=== PATIENT | female | born 1990 | race Caucasian/White ===

== ENCOUNTER 2020-12-12 22:55 | Observation (INO) | payer OTHER, SELFPAY ==
--- NOTE | 2020-12-12 22:58 | ED_ITS ---
HPI - General Adult General Chief complaint: Allergic Reaction Stated complaint: brought by Dr Doss Time Seen by Provider: 12/12/20 22:58 Source: patient, family (Mother) and other (Dr. Doss) Mode of arrival: Ambulatory Limitations: no limitations History of Present Illness HPI narrative: This is a 30-year-old female comes emergency department with complaint of swelling of her tongue and underneath the tongue. Patient had a tongue release the underneath her tongue earlier today. Patient became developing increasing swelling. She is having some difficulty with speech and had some difficulty drinking but was able to drink fluids earlier. She does not feel like her airway is affected she feels like she is moving air properly this time. Patient return to Dr. Doss's office where he removed her sutures as he suspected she may have a hematoma but this did not drain. She did not have significant saliva drainage either. He states this is otherwise quite atypical to have this significant swelling. Patient has not had similar reactions in the past she has allergies to codeine and gluten. She has not had any other rashes or skin changes. No wheezing. Patient denies any fevers. She denies any chills. She denies any redness or warmth. She denies any chest pain or shortness of breath. She has had some mild nausea but no vomiting. She denies any abdominal pain. No dysuria, frequency or urgency. No vaginal bleeding or discharge. Of note she is in that is 18 weeks . She has been getting regular care through the dental services director in [place]. Patient has had 2 prior oral surgeries for removal of cyst in her mouth. She is on prenatals, 2 aspirin 81 mg daily. Related Data Allergies Allergy/AdvReac Type Severity Reaction Status Date / Time codeine Allergy Verified 12/12/20 23:11 gluten Allergy Verified 12/12/20 23:11 Review of Systems Review of Systems ROS Unobtainable: All systems reviewed & are unremarkable except as noted in HPI and below Patient History Medical History (Updated 12/13/20 @ 02:31 by Sindy Davidson MD) 18 weeks gestation of Gluten intolerance Family History (Updated 12/13/20 @ 02:32 by Sindy Davidson MD) Mother Diabetes mellitus Hypertension Breast cancer Social History household members: none Smoking Status: Never smoker alcohol intake: never Exam Narrative Exam Narrative: GEN: well nourished, well appearing female, alert and oriented x 3, patient appears to be in mild distress. HEENT: Atraumatic, pupils are equal round reactive to light, extraocular movements are intact, nares are clear. Patient's tongue appears mild to moderately swollen. She also has swelling underneath the tongue of the lower floor appears to be pushing the tongue upwards. I can see the posterior throat but cannot see the tonsils easily. Patient is slightly muffled. She is swallowing secretions but occasionally spits them out. Patient does not have any stridor. HEART: Regular rate and rhythm without murmur, clicks, rubs. LUNGS:Lungs clear to auscultation, no wheezes, rales, crackles, chest moves symmetrically ABD:bowel sounds normal, soft, non-tender, no guarding, rebound, rigidity, no masses noted, no hepatosplenomegaly, gravid. MSCL: Full range of motion, normal gait NEURO:CN 2-12 intact, sensation normal SKIN: No skin changes noted Initial Vital Signs Initial Vital Signs: Vital Signs Pulse Rate 97 H 12/12/20 23:01 Pulse Oximetry 100 12/12/20 23:01 Course Orders Ordered: ED Orders 12/12/20 23:03 CT soft tissue neck w con Stat 12/12/20 23:14 Complete Blood Count AUTO DIFF Stat Comprehensive Metabolic Panel Stat Lipase Stat Procalcitonin Stat 12/12/20 23:30 COVID19 - ADMIT (W[facility]NEAL[facility] swab/PCR) Stat Acetaminophen (Acetaminophen 325 Mg Tablet) 650 mg PO Q6HR PRN PRN Reason: Fever Dexamethasone (Dexamethasone 4 Mg/Ml Vial) 4 mg IV Q6HR [facility] Last Admin: 12/13/20 05:43 Dose: 4 mg Documented by: FANNY Diphenhydramine HCl (Diphenhydramine 25 Mg Tablet) 25 mg PO Q6HR SHYLA Last Admin: 12/13/20 05:43 Dose: 25 mg Documented by: FANNY Dextrose/Sodium Chloride (Dextrose 5%-0.45% Ns) 1,000 mls @ 100 mls/hr IV CONT [facility] Last Admin: 12/13/20 02:52 Dose: 100 mls/hr Documented by: FANNY Famotidine (Pepcid) 20 mg in 50 mls @ 200 mls/hr IV Q12HR SHYLA Naloxone HCl (Naloxone 0.4 Mg/Ml Vial) 0.2 mg IV Q2MIN PRN PRN Reason: Opiate Reversal Naloxone HCl (Naloxone 0.4 Mg/Ml Vial) 0.2 mg IV Q2MIN PRN PRN Reason: Opiate Reversal Discontinued Medications Epinephrine (Racepinephrine 0.5 Ml Neb) 0.5 ml INH NOW ONE Stop: 12/12/20 23:34 Last Admin: 12/12/20 23:36 Dose: 0.5 ml Documented by: OUMAR Epinephrine HCl (Epinephrine 1 Mg/Ml) 0.5 mg IM NOW ONE Stop: 12/13/20 00:42 Last Admin: 12/13/20 00:50 Dose: 0.5 mg Documented by: OUMAR Dexamethasone 20 mg/ Sodium (Chloride) 52 mls @ 208 mls/hr IV NOW ONE Stop: 12/12/20 23:04 Last Infusion: 12/12/20 23:36 Dose: 0 mls/hr Documented by: Admin: 12/12/20 23:17 Dose: 208 mls/hr Documented by: OUMAR Sodium Chloride (Normal Saline 0.9%) 1,000 mls @ 1,000 mls/hr IV BOLUS ONE Stop: 12/13/20 00:02 Last Infusion: 12/13/20 00:36 Dose: 0 mls/hr Documented by: Admin: 12/12/20 23:18 Dose: 1,000 mls/hr Documented by: OUMAR Ondansetron HCl (Ondansetron 4 Mg/2 Ml Inj) 4 mg IV NOW ONE Stop: 12/12/20 23:04 Last Admin: 12/12/20 23:17 Dose: 4 mg Documented by: OUMAR Reevaluation(s) Reevaluation #1: Spoke with patient. She does not feel it is worsening at this time but is not improving Time: 23:34 Reevaluation #2: Dr. Espinosa, as patient is not a viable at this time she does not feel would be appropriate put on the OB service but they are happy to consult or assist with any questions in terms of medications for treatment. Time: 23:43 Reevaluation #3: Recheck, patient is feeling better. She feels like her tongue size has been decreasing she still has a little bit muffled but her voice is improved audibly to myself as well as herself. Pm repeat check at 1235 patient states stablized but no worsening. Time: 00:11 Consultations Consultation #1: Dr. Davidson. Would like to know that we have here way back up. Also to consult with obstetrics. Time: 23:34 Consultation #2: Dr. Barragan from anesthesia is notified that patient is here and we are monitoring. Consultation #3: Dr. Davidson accepts for observation in the ICU. Patient has had some improvement but not resolved. We did give Epi to see if this would improve and also seems to have some improvement on recheck prior to going to floor. Time: 00:39 Vital Signs Vital signs: Vital Signs - 8 hr 12/12/20 23:30 12/12/20 23:41 12/12/20 23:47 Pulse Rate 87 71 110 H Respiratory Rate 20 Blood Pressure 134/58 L Pulse Oximetry 98 98 100 12/13/20 00:00 12/13/20 00:21 12/13/20 00:30 Pulse Rate 92 H 88 88 Respiratory Rate Blood Pressure 126/62 Pulse Oximetry 97 97 97 Medical Decision Making Lab Data Lab results reviewed: Yes I reviewed the patient's lab results. Result diagrams: 12/12/20 23:14 12/12/20 23:14 Labs: Lab Results 12/12/20 12/12/20 12/12/20 Range/Units 23:14 23:14 23:14 WBC 17.2 H (4.5-11.0) X10^3/uL RBC 3.98 L (4.0-5.2) X10^6/uL Hgb 12.1 (12.0-16.0) g/dL Hct 35.1 L (36-46) % MCV 88.3 (80-100) fL MCH 30.4 (26-34) PG MCHC 34.4 (30-36) % RDW 13.7 (11.6-14.8) % Plt Count 216 (150-400) X10^3/uL Neut % (Auto) 85.8 H (50-75) % Lymph % (Auto) 9.4 L (25-40) % [place] % (Auto) 4.2 (3-14) % Eos % (Auto) 0.3 L (2-4) % Baso % (Auto) 0.3 (0-2) % Neut # (Auto) 12484 H (3295-9140) /uL Lymph # (Auto) 1600 (4684-8270) /uL [place] # (Auto) 700 (0-900) /uL Eos # (Auto) 0 (0-450) /uL Baso # (Auto) 100 (0-100) /uL Sodium 135 L (137-145) mmol/L Potassium 3.8 (3.4-5.1) mmol/L Chloride 105 (98-107) mmol/L Carbon Dioxide 21 L (22-32) mmol/L BUN 6 L (7-17) mg/dL Creatinine 0.40 L (0.52-1.04) mg/dL Estimated GFR > 60.0 (>60) mL/min BUN/Creatinine Ratio 15.0 (6-22) Glucose 123 H (70-100) mg/dL Calcium 9.6 (8.4-10.2) mg/dL Total Bilirubin 0.5 (0.2-1.3) mg/dL AST 24 (14-36) IU/L ALT 18 (<35) IU/L Alkaline Phosphatase 48 (38-126) U/L Total Protein 6.9 (6.3-8.2) g/dL Albumin 4.0 (3.5-5.0) g/dL Globulin 2.9 (1.7-4.1) g/dL Albumin/Globulin Ratio 1.4 (1.0-2.8) Lipase 74 (23-300) U/L Procalcitonin 0.05 (<0.5) ng/mL SARS-CoV-2 (PCR) (Negative) 12/12/20 Range/Units 23:30 WBC (4.5-11.0) X10^3/uL RBC (4.0-5.2) X10^6/uL Hgb (12.0-16.0) g/dL Hct (36-46) % MCV (80-100) fL MCH (26-34) PG MCHC (30-36) % RDW (11.6-14.8) % Plt Count (150-400) X10^3/uL Neut % (Auto) (50-75) % Lymph % (Auto) (25-40) % [place] % (Auto) (3-14) % Eos % (Auto) (2-4) % Baso % (Auto) (0-2) % Neut # (Auto) (4161-4279) /uL Lymph # (Auto) (1848-4860) /uL [place] # (Auto) (0-900) /uL Eos # (Auto) (0-450) /uL Baso # (Auto) (0-100) /uL Sodium (137-145) mmol/L Potassium (3.4-5.1) mmol/L Chloride (98-107) mmol/L Carbon Dioxide (22-32) mmol/L BUN (7-17) mg/dL Creatinine (0.52-1.04) mg/dL Estimated GFR (>60) mL/min BUN/Creatinine Ratio (6-22) Glucose (70-100) mg/dL Calcium (8.4-10.2) mg/dL Total Bilirubin (0.2-1.3) mg/dL AST (14-36) IU/L ALT (<35) IU/L Alkaline Phosphatase (38-126) U/L Total Protein (6.3-8.2) g/dL Albumin (3.5-5.0) g/dL Globulin (1.7-4.1) g/dL Albumin/Globulin Ratio (1.0-2.8) Lipase (23-300) U/L Procalcitonin (<0.5) ng/mL SARS-CoV-2 (PCR) Negative (Negative) Imaging Data CT soft tissue neck: Radiologist's Impression: Nonspecific sublingual and submandibular edema and stranding left greater than right. Findings are slightly more prominent to the left of midline. No focal abscess or fluid collection noted. There is only minimal bilateral adenopathy. Findings are nonspecific. Submandibular glands are homogeneous and symmetric in size. Bilateral parotid glands are also much is symmetric in size. No salivary ductal stones demonstrated. Epiglottis, tonsils and adenoids are unremarkable. Nonspecific 1.4 cm left thyroid nodule suggest follow-up ultrasound. MDM Narrative Medical decision making narrative: This is a 30-year-old female at 18 weeks with care in [place]. Patient was accompanied by Dr. Doss after having a tongue release earlier today. Patient had some mild discomfort, took Tylenol and use some topical lidocaine to the site and had increasing swelling over several hours with significant swelling underneath the tongue and sublingual tissue. Patient was re-evaluated by Dr. Doss in the office to release the sutures in regards to being concerned there may be a hematoma. This did not improve patient's symptoms and there was no significant drainage of hematoma or saliva. He continued to monitor but she did not have much improvement you accompanied the patient here to the emergency department for evaluation after contacting myself. Patient is having some difficulty with secretions, her voice is muffled but she is able to speak, she does not have any stridor but does have significant swelling underneath the tongue and somewhat of the tongue itself. Patient did respond to Decadron, racemic epi here in the department and epinephrine was also added is this unclear if it is a true anaphylaxis, angioedema or reactive swelling secondary to her intervention. Area does not appear to be infected, patient does have a leukocytosis but this could be likely reactive as well as elevated during . Patient's CT does not show any obvious fluid collection or hematoma. I spoke with order processing clerk who does not recommend any intervention from their standpoint. We did discuss if TXA would possibly be an option if needed as off-label use for angioedema they felt this would likely be appropriate if needed. They are happy to consult for any additional recommendations in terms of medications or care. I also spoke with Anesthesia mother aware that there is a patient with potential critical airway. Patient was monitored here in the department she continued to have some improvement her speech also began to improve and she was able to tolerate her secretions better. Patient was then transferred up to the ICU for continuing monitoring overnight. Discharge Plan Departure Patient Disposition: Admitted as Observation Clinical Impression: Angioedema Qualifiers: Encounter type: initial encounter Qualified Code(s): T78.3XXA - Angioneurotic edema, initial encounter Admit Date/Time: 12/13/20 00:38 Admit Provider: Sindy Davidson
[2020-12-12 23:01] VITALS: PULSE 97; O2SAT 100
--- NOTE | 2020-12-12 23:03 | DI.CT.S_ITS ---
PROCEDURE: CT SOFT TISSUE NECK W CON INDICATIONS: status post tongue release, swelling TECHNIQUE: After the administration of intravenous contrast, 3.0 mm axial sections acquired from the sella to the aortic arch. Additional oblique axial 3.0 mm sections acquired through the pharynx. 3 mm thick coronal and sagittal reformats were generated. For radiation dose reduction, the following was used: automated exposure control. COMPARISON: None. FINDINGS: Image quality: Excellent. Lymph nodes: No enlarged lymph nodes seen throughout the neck. Vessels: Visualized vasculature appears patent. Neck spaces: The oropharynx, nasopharynx, and pharynx demonstrate no mucosal lesions. The vocal cords, false vocal cords, pyriform sinuses, epiglottis, vallecula, and tongue base all appear normal. Small air locules noted inferior to the anterior margin of the tongue likely at the site of tongue release. Fluid fills the vallecular lie in the left piriform sinus. There is sublingual and submandibular soft tissue edema/stranding which could be related to recent surgery or infection. No abscess identified. Glands: The parotid and submandibular glands appear normal. Thyroid gland contains a 1.5 x 1.5 x 2.0 centimeter nodule in the left lobe. Miscellaneous: Visualized brain and orbits appear normal. Lung apices appear clear. Superficial soft tissues appear normal. Bones: No suspicious bony lesions. Visualized sinuses and mastoids appear unremarkable. IMPRESSION: 1. Mild sublingual and sub mandibular soft tissue inflammation as well as small air locules in the anterior sublingual space which could be postsurgical or infectious. 2. No abscess. 3. 1.5 x 1.5 x 2.0 centimeter left thyroid nodule. Recommend thyroid ultrasound when clinically feasible. Dictated by: Dilcia Rosas MD, PhD on 12/13/2020 at 7:16 Approved by: Dilcia Rosas MD, PhD on 12/13/2020 at 7:23
[2020-12-12 23:06] VITALS: BP 129/83; PULSE 85; RESP 18; TEMP 36.7; O2SAT 98; BMI 36.0
[2020-12-12 23:08] VITALS: BP 140/82; PULSE 90; O2SAT 99
[2020-12-12] MEDS: dexAMETHasone 20 MG in SODIUM CHLORIDE 0.9% 50 ML 208 ML IV (23:17)
[2020-12-12] MEDS: ONDANSETRON 4 MG/2 ML INJ IV (23:17)
[2020-12-12] MEDS: SODIUM CHLORIDE 0.9% 1,000 ML 1000 ML IV (23:18)
[2020-12-12 23:24] LABS: Add Manual Diff / Slide Review NO; Basophils Absolute Auto 100 /uL (0-100); Basophils Percent Auto 0.3 % (0-2); Eosinophils Absolute Auto 0 /uL (0-450); Eosinophils Percent Auto 0.3 % (2-4); Hematocrit 35.1 % (36-46); Hemoglobin 12.1 g/dL (12.0-16.0); Lymphocytes Absolute Auto 1600 /uL (1100-4500); Lymphocytes Percent Auto 9.4 % (25-40); Mean Corpuscular HGB Conc 34.4 % (30-36); Mean Corpuscular Hemoglobin 30.4 PG (26-34); Mean Corpuscular Volume 88.3 fL (80-100); Monocytes Absolute Auto 700 /uL (0-900); Monocytes Percent Auto 4.2 % (3-14); Neutrophils Absolute Auto 14700 /uL (1500-7000); Neutrophils Percent Auto 85.8 % (50-75); Platelet Count 216 X10^3/uL (150-400); Red Blood Cell Count 3.98 X10^6/uL (4.0-5.2); Red Cell Distribution Width 13.7 % (11.6-14.8); White Blood Cell Count 17.2 X10^3/uL (4.5-11.0)
[2020-12-12 23:30] VITALS: PULSE 87; O2SAT 98
[2020-12-12 23:30] LABS: Alanine Aminotransferase 18 IU/L (<35); Albumin Globulin Ratio 1.4 (1.0-2.8); Alkaline Phosphatase 48 U/L (38-126); Aspartate Aminotransferase 24 IU/L (14-36); Bilirubin Total 0.5 mg/dL (0.2-1.3); Blood Urea Nitrogen 6 mg/dL (7-17); Calcium 9.6 mg/dL (8.4-10.2); Carbon Dioxide 21 mmol/L (22-32); Chloride 105 mmol/L (98-107); Estimated Glomerular Filt Rate > 60.0 mL/min (>60); Globulin 2.9 g/dL (1.7-4.1); Glucose 123 mg/dL (70-100); HEMOLYSIS < 15 (0-50); Lipase 74 U/L (23-300); Potassium 3.8 mmol/L (3.4-5.1); Sodium 135 mmol/L (137-145); Total Protein 6.9 g/dL (6.3-8.2)
[2020-12-12] MEDS: RACEPINEPHRINE 0.5 ML NEB INH (23:36)
[2020-12-12 23:41] VITALS: PULSE 71; RESP 20; O2SAT 98
[2020-12-12 23:47] VITALS: BP 134/58; PULSE 110; O2SAT 100
[2020-12-13] VITALS (12 sets, daily range): BP systolic 117–149; BP diastolic 58–74; PULSE 88–110; RESP 18–24; TEMP 36.1–37.2; O2SAT 94–98; BMI 36.0
[2020-12-13 00:10] LABS: Procalcitonin 0.05 ng/mL (<0.5)
--- NOTE | 2020-12-13 00:34 | PC.NURSE ---
Her tongue swelling is improved as noted by DR Doss and DR Yarbrough,also her voice is clearer now,she is swallowing her secretions and she vebalized less tongue and facial swelling.
[2020-12-13 00:37] LABS: COVID19 - ADMIT (NP swab/PCR) Negative (Negative)
[2020-12-13] MEDS: EPINEPHrine 1 MG/ML 0.5 MG IM (00:50)
--- NOTE | 2020-12-13 02:27 | PM.HP.1 ---
History of Present Illness History of Present Illness Date Patient Seen: 12/13/20 Chief complaint: brought by Dr Doss Narrative: The patient is a 30-year-old 1 para 0 who is 18 weeks gestation who underwent a tongue release surgery earlier today. Patient states the surgery was uneventful. She went home and several hours later developed significant pain. She took Tylenol and lidocaine but developed increasing swelling of her tongue as well as additional pain. She was seen by Dr. Doss, he removed the sutures thinking the patient may have had a hematoma. However there was no evidence of hematoma. As the patient had significant swelling she had difficulty speaking, she was drooling, and there was concern about airway compromise. Patient did undergo CT scanning which revealed:Nonspecific sublingual and submandibular edema and stranding left greater than right. Findings are slightly more prominent to the left of midline. No focal abscess or fluid collection noted. There is only minimal bilateral adenopathy. Findings are nonspecific. Submandibular glands are homogeneous and symmetric in size. Bilateral parotid glands are also much is symmetric in size. No salivary ductal stones demonstrated. Epiglottis, tonsils and adenoids are unremarkable. Nonspecific 1.4 cm left thyroid nodule suggest follow-up ultrasound. Patient denies any shortness of breath, wheezing, or difficulty swallowing. She was given Decadron, racemic epinephrine in the emergency department with some improvement of her symptoms. Swelling appear to improved. Her speech improved. However given her significant edema the patient is admitted to the hospital overnight for observation. She reports her pain is currently well controlled. She continues to have excessive saliva which she is expelling. She does have a history of allergies to codeine and gluten. Patient History Medical History (Updated 12/13/20 @ 02:31 by Sindy Davidson MD) 18 weeks gestation of Gluten intolerance Family & Social History Family History (Updated 12/13/20 @ 02:32 by Sindy Davidson MD) Mother Diabetes mellitus Hypertension Breast cancer Social History: household members none Prior Living Arrangements Apartment/Condo Safety & Behavioral: Feels Safe in Current Yes Environment Been Physically Hurt or No Threatened By a Person Suicidal Ideation Description None Suicide Plan Description No Plan Tobacco & Substance use: Smoking Status Never smoker alcohol intake never Substance Use Type does not use Meds Home Medications and Allergies Allergies Allergy/AdvReac Type Severity Reaction Status Date / Time codeine Allergy Verified 12/12/20 23:11 gluten Allergy Verified 12/12/20 23:11 Review of Systems Review of Systems ROS: Yes All systems reviewed with the patient and are negative except as otherwise documented Exam Vital Signs (past 8 hours): - 12/12/20 23:01 12/12/20 23:06 12/12/20 23:08 Temperature 98.1 F Pulse Rate 97 H 85 90 Respiratory Rate 18 Blood Pressure 129/83 140/82 Pulse Oximetry 100 98 99 12/12/20 23:30 12/12/20 23:41 12/12/20 23:47 Temperature Pulse Rate 87 71 110 H Respiratory Rate 20 Blood Pressure 134/58 L Pulse Oximetry 98 98 100 12/13/20 00:00 12/13/20 00:21 12/13/20 00:30 Temperature Pulse Rate 92 H 88 88 Respiratory Rate Blood Pressure 126/62 Pulse Oximetry 97 97 97 12/13/20 00:57 12/13/20 00:59 12/13/20 01:15 Temperature 99.0 F Pulse Rate 107 H 100 H 110 H Respiratory Rate 18 18 Blood Pressure 133/61 133/61 149/72 H Pulse Oximetry 97 98 97 12/13/20 01:40 Temperature 99.0 F Pulse Rate 110 H Respiratory Rate 18 Blood Pressure 149/72 H Pulse Oximetry 97 Oxygen Delivery Method Room Air Oxygen Flow Rate 0 Narrative Exam Narrative: Pleasant female lying in bed with difficulty in speaking, her tongue is enlarged HEENT: Normocephalic atraumatic, extraocular muscles are intact, oropharynx reveals an enlarged tongue, underneath the tongue is some erythema and prior surgical scarring. Neck: Supple, mildly tender in the left anterior cervical area, no palpable masses noted Lungs: Clear to auscultation Cardiac exam: Regular rate and rhythm normal S1-S2 Abdomen fundus is palpated, no hepatosplenomegaly noted Extremities: No edema Neuro exam: Nonfocal Skin exam: No lesion Psychiatric exam: Patient is awake alert and answers questions appropriately, no delusions, no hallucinations Objective Labs Result Diagrams: 12/12/20 23:14 12/12/20 23:14 Labs: Laboratory Results - last 24 hr 12/12/20 12/12/20 12/12/20 23:14 23:14 23:14 WBC 17.2 H RBC 3.98 L Hgb 12.1 Hct 35.1 L MCV 88.3 MCH 30.4 MCHC 34.4 RDW 13.7 Plt Count 216 Neut % (Auto) 85.8 H Lymph % (Auto) 9.4 L [place] % (Auto) 4.2 Eos % (Auto) 0.3 L Baso % (Auto) 0.3 Neut # (Auto) 33792 H Lymph # (Auto) 1600 [place] # (Auto) 700 Eos # (Auto) 0 Baso # (Auto) 100 Sodium 135 L Potassium 3.8 Chloride 105 Carbon Dioxide 21 L BUN 6 L Creatinine 0.40 L Estimated GFR > 60.0 BUN/Creatinine Ratio 15.0 Glucose 123 H Calcium 9.6 Total Bilirubin 0.5 AST 24 ALT 18 Alkaline Phosphatase 48 Total Protein 6.9 Albumin 4.0 Globulin 2.9 Albumin/Globulin Ratio 1.4 Lipase 74 Procalcitonin 0.05 SARS-CoV-2 (PCR) 12/12/20 23:30 WBC RBC Hgb Hct MCV MCH MCHC RDW Plt Count Neut % (Auto) Lymph % (Auto) [place] % (Auto) Eos % (Auto) Baso % (Auto) Neut # (Auto) Lymph # (Auto) [place] # (Auto) Eos # (Auto) Baso # (Auto) Sodium Potassium Chloride Carbon Dioxide BUN Creatinine Estimated GFR BUN/Creatinine Ratio Glucose Calcium Total Bilirubin AST ALT Alkaline Phosphatase Total Protein Albumin Globulin Albumin/Globulin Ratio Lipase Procalcitonin SARS-CoV-2 (PCR) Negative Assessment & Plan Assessment & Plan narrative: Impression 1. 30-year-old female 18 weeks gestation admitted to the hospital for probable angioedema status post tongue release surgery -patient continues to have significant swelling, difficulty with speech, and drooling -she has an elevated white count at 17,000 which is likely reactive related to her surgery earlier today -her pain appears to be well controlled, swelling has improved, no evidence of airway compromise -CT scan of the neck and soft tissues revealNonspecific sublingual and submandibular edema and stranding left greater than right. Findings are slightly more prominent to the left of midline. No focal abscess or fluid collection noted. There is only minimal bilateral adenopathy. Findings are nonspecific. Submandibular glands are homogeneous and symmetric in size. Bilateral parotid glands are also much is symmetric in size. No salivary ductal stones demonstrated. Epiglottis, tonsils and adenoids are unremarkable. Nonspecific 1.4 cm left thyroid nodule suggest follow-up ultrasound. -at this time will continue Decadron 4 mg q.6, Benadryl 50 mg q.6, Pepcid 20 mg twice daily -will continue Tylenol for pain -will utilize SCDs for DVT prophylaxis -anticipate the patient will be able to discharge and several hours once her swelling has improved 2. Eighteen weeks gestation -as the is not viable at this time no further intervention is needed, will consult Ob if the patient remains here beyond the next 24 hours Patient is a full code will note that her record accordingly Patient states her mother is her surrogate decision maker and that will be noted in her record Patient is admitted under observation as it is anticipated she will discharge within 8 hours
[2020-12-13] MEDS: DEXTROSE 5%-0.45% NS 1,000 ML 100 ML IV (02:52)
[2020-12-13] MEDS: diphenhydrAMINE 25 MG TABLET PO ×2 (05:43→12:31)
[2020-12-13] MEDS: DEXAMETHASONE 4 MG/ML VIAL IV ×2 (05:43→12:31)
--- NOTE | 2020-12-13 07:09 | P.PN_ITS ---
Subjective Subjective Date Patient Seen: 12/13/20 Time Patient Seen: 07:10 Interval history: Patient reports the pain and discomfort has decreased and she is feeling better. She is able to swallow her secretions and she was able to swallow a pill. She feels the swelling has decreased. Exam Vital Signs (past 8 hours): - 12/12/20 23:30 12/12/20 23:41 12/12/20 23:47 Temperature Pulse Rate 87 71 110 H Respiratory Rate 20 Blood Pressure 134/58 L Pulse Oximetry 98 98 100 12/13/20 00:00 12/13/20 00:21 12/13/20 00:30 Temperature Pulse Rate 92 H 88 88 Respiratory Rate Blood Pressure 126/62 Pulse Oximetry 97 97 97 12/13/20 00:57 12/13/20 00:59 12/13/20 01:15 Temperature 99.0 F Pulse Rate 107 H 100 H 110 H Respiratory Rate 18 18 Blood Pressure 133/61 133/61 149/72 H Pulse Oximetry 97 98 97 12/13/20 01:40 12/13/20 03:23 12/13/20 04:26 Temperature 99.0 F 97.6 F 97.8 F Pulse Rate 110 H 101 H 99 H Respiratory Rate 18 19 19 Blood Pressure 149/72 H 137/60 131/59 L Pulse Oximetry 97 96 97 12/13/20 05:39 12/13/20 06:30 Temperature 97.8 F 97.0 F L Pulse Rate 102 H 88 Respiratory Rate 23 18 Blood Pressure 130/58 L 138/74 Pulse Oximetry 95 94 Oxygen Delivery Method Room Air Oxygen Flow Rate 0 Narrative Exam Narrative: Able to swallow her secretions and she is not having any difficulty with breathing. Const General: cooperative and comfortable Orientation: alert and oriented x3 HENMT Mouth: oral mucosae normal and muffled voice Other: Floor of the mouth still firm and slightly raised. Edema in the tongue has decreased. Wound with some opening near the submandibular ducts. No active bleeding noted. Neck Neck: trachea midline and submandibular swelling Other: Tender to palpation in the submandibular glands. Objective Labs Result Diagrams: 12/12/20 23:14 12/12/20 23:14 Labs: Laboratory Results - last 24 hr 12/12/20 12/12/20 12/12/20 23:14 23:14 23:14 WBC 17.2 H RBC 3.98 L Hgb 12.1 Hct 35.1 L MCV 88.3 MCH 30.4 MCHC 34.4 RDW 13.7 Plt Count 216 Neut % (Auto) 85.8 H Lymph % (Auto) 9.4 L [place] % (Auto) 4.2 Eos % (Auto) 0.3 L Baso % (Auto) 0.3 Neut # (Auto) 41657 H Lymph # (Auto) 1600 [place] # (Auto) 700 Eos # (Auto) 0 Baso # (Auto) 100 Sodium 135 L Potassium 3.8 Chloride 105 Carbon Dioxide 21 L BUN 6 L Creatinine 0.40 L Estimated GFR > 60.0 BUN/Creatinine Ratio 15.0 Glucose 123 H Calcium 9.6 Total Bilirubin 0.5 AST 24 ALT 18 Alkaline Phosphatase 48 Total Protein 6.9 Albumin 4.0 Globulin 2.9 Albumin/Globulin Ratio 1.4 Lipase 74 Procalcitonin 0.05 SARS-CoV-2 (PCR) 12/12/20 23:30 WBC RBC Hgb Hct MCV MCH MCHC RDW Plt Count Neut % (Auto) Lymph % (Auto) [place] % (Auto) Eos % (Auto) Baso % (Auto) Neut # (Auto) Lymph # (Auto) [place] # (Auto) Eos # (Auto) Baso # (Auto) Sodium Potassium Chloride Carbon Dioxide BUN Creatinine Estimated GFR BUN/Creatinine Ratio Glucose Calcium Total Bilirubin AST ALT Alkaline Phosphatase Total Protein Albumin Globulin Albumin/Globulin Ratio Lipase Procalcitonin SARS-CoV-2 (PCR) Negative [facility] Medical History (Updated 12/13/20 @ 02:31 by Sindy Davidson MD) 18 weeks gestation of Gluten intolerance Family History (Updated 12/13/20 @ 02:32 by Sindy Davidson MD) Mother Diabetes mellitus Hypertension Breast cancer Social History household members: none Smoking Status: Never smoker alcohol intake: never Assessment & Plan Post-op Postoperative Procedures: Lingual frenuloplasty Postoperative day: 1 Postoperative status narrative: Patient with postoperative swelling that was quite significant and potentially compromising her airway. Unknown etiology, either angioedema or surgical swelling. Postoperative plan narrative: Continue with steroid treatment and monitor patient's airway. Allow advance in diet as tolerated. Time Spent With Patient Time with patient: less than 15 minutes
--- NOTE | 2020-12-13 09:32 | P.CONS_ITS ---
History of Present Illness Consult details Date Patient Seen: 12/13/20 Time Patient Seen: 09:00 Chief complaint: brought by Dr Doss Reason for consult: 18 weeks Requesting provider: Arturo Lawton Narrative: This patient is a 30-year-old at 18 weeks gestation with a achieved via intrauterine insemination, admitted to the hospital after angioedema from an allergic reaction to lidocaine. The patient was undergoing a snip of a tongue tie with ENT, admitted to the hospitalist service for man agement and doing well. The patient has had an otherwise uncomplicated , denies bleeding, cramping, or loss of fluid, pelvic pain, or abdominal pain. The patient has not yet felt consistent movement. She is cared for by a midwifery group in [place]. 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 Meds Home Medications and Allergies Home Medications Medication Instructions Recorded Confirmed Type aspirin 162 mg PO DAILY 12/13/20 12/13/20 History folic acid-vitamin B6-vit B12 1 tab PO QPM 12/13/20 12/13/20 History loratadine [Claritin] 10 mg PO DAILY 12/13/20 12/13/20 History omega-3 fatty acids 1,500 mg PO DAILY 12/13/20 12/13/20 History prednisone See Rx Instructions .ROUTE 12/13/20 Rx .COMPLEX 4 Days #6 tab vit-iron fum-folic ac 1 tab PO QPM 12/13/20 12/13/20 History sertraline 75 mg PO QPM 12/13/20 12/13/20 History Allergies Allergy/AdvReac Type Severity Reaction Status Date / Time codeine Allergy Verified 12/12/20 23:11 gluten Allergy Verified 12/12/20 23:11 Review of Systems Constitutional Constitutional: Reports system reviewed and no additional complaints, except as documented Gastrointestinal Gastrointestinal: Reports system reviewed and no additional complaints, except as documented Genitourinary Genitourinary: Reports system reviewed and no additional complaints, except as documented Exam Vital Signs (past 8 hours): - 12/13/20 01:40 12/13/20 03:23 12/13/20 04:26 Temperature 99.0 F 97.6 F 97.8 F Pulse Rate 110 H 101 H 99 H Respiratory Rate 18 19 19 Blood Pressure 149/72 H 137/60 131/59 L Pulse Oximetry 97 96 97 12/13/20 05:39 12/13/20 06:30 12/13/20 07:30 Temperature 97.8 F 97.0 F L 97.5 F L Pulse Rate 102 H 88 95 H Respiratory Rate 23 18 24 Blood Pressure 130/58 L 138/74 117/65 Pulse Oximetry 95 94 94 Oxygen Delivery Method Room Air Oxygen Flow Rate 0 Const General: cooperative, healthy appearing and comfortable Orientation: alert, awake and oriented x3 GI Palpation: soft and No tender Other: heart tone achieved with Doppler, 157, moderate variability within the 150s. movement audible. No fundal tenderness. Objective Labs Result Diagrams: 12/13/20 08:45 12/13/20 08:45 Labs: Laboratory Results - last 24 hr 12/12/20 12/12/20 12/12/20 23:14 23:14 23:14 WBC 17.2 H RBC 3.98 L Hgb 12.1 Hct 35.1 L MCV 88.3 MCH 30.4 MCHC 34.4 RDW 13.7 Plt Count 216 Neut % (Auto) 85.8 H Lymph % (Auto) 9.4 L [place] % (Auto) 4.2 Eos % (Auto) 0.3 L Baso % (Auto) 0.3 Neut # (Auto) 15166 H Lymph # (Auto) 1600 [place] # (Auto) 700 Eos # (Auto) 0 Baso # (Auto) 100 Sodium 135 L Potassium 3.8 Chloride 105 Carbon Dioxide 21 L BUN 6 L Creatinine 0.40 L Estimated GFR > 60.0 BUN/Creatinine Ratio 15.0 Glucose 123 H Calcium 9.6 Total Bilirubin 0.5 AST 24 ALT 18 Alkaline Phosphatase 48 Total Protein 6.9 Albumin 4.0 Globulin 2.9 Albumin/Globulin Ratio 1.4 Lipase 74 Procalcitonin 0.05 SARS-CoV-2 (PCR) 12/12/20 23:30 WBC RBC Hgb Hct MCV MCH MCHC RDW Plt Count Neut % (Auto) Lymph % (Auto) [place] % (Auto) Eos % (Auto) Baso % (Auto) Neut # (Auto) Lymph # (Auto) [place] # (Auto) Eos # (Auto) Baso # (Auto) Sodium Potassium Chloride Carbon Dioxide BUN Creatinine Estimated GFR BUN/Creatinine Ratio Glucose Calcium Total Bilirubin AST ALT Alkaline Phosphatase Total Protein Albumin Globulin Albumin/Globulin Ratio Lipase Procalcitonin SARS-CoV-2 (PCR) Negative Assessment & Plan Assessment & Plan narrative: This patient has reassuring status, with no obstetrical symptoms and a heart rate as above. We discussed that a short-term steroid taper is safe in when indicated, discussed precautions for return, and discussed that she should call her human resources analyst for discussion of post admission follow-up. All questions pertaining to her obstetric care today were answered.
[2020-12-13 09:37] LABS: Add Manual Diff / Slide Review NO; Basophils Absolute Auto 0 /uL (0-100); Basophils Percent Auto 0.1 % (0-2); Eosinophils Absolute Auto 0 /uL (0-450); Hematocrit 33.3 % (36-46); Hemoglobin 11.4 g/dL (12.0-16.0); Lymphocytes Absolute Auto 900 /uL (1100-4500); Lymphocytes Percent Auto 6.3 % (25-40); Mean Corpuscular HGB Conc 34.1 % (30-36); Mean Corpuscular Hemoglobin 30.2 PG (26-34); Mean Corpuscular Volume 88.6 fL (80-100); Monocytes Absolute Auto 200 /uL (0-900); Monocytes Percent Auto 1.4 % (3-14); Neutrophils Absolute Auto 12400 /uL (1500-7000); Neutrophils Percent Auto 92.2 % (50-75); Platelet Count 218 X10^3/uL (150-400); Red Blood Cell Count 3.77 X10^6/uL (4.0-5.2); Red Cell Distribution Width 13.7 % (11.6-14.8); White Blood Cell Count 13.4 X10^3/uL (4.5-11.0)
[2020-12-13 09:45] LABS: BUN Creatinine Ratio 15.2 (6-22); Blood Urea Nitrogen 5 mg/dL (7-17); Calcium 9.3 mg/dL (8.4-10.2); Carbon Dioxide 19 mmol/L (22-32); Chloride 108 mmol/L (98-107); Estimated Glomerular Filt Rate > 60.0 mL/min (>60); Glucose 155 mg/dL (70-100); HEMOLYSIS < 15 (0-50); Magnesium 1.5 mg/dL (1.6-2.3); Sodium 135 mmol/L (137-145)
--- NOTE | 2020-12-13 11:14 | CM.IDA ---
Initial DCP Assessment Note Pt is a 30 yo female, resident of [place], presents POD#0 from a Lingual frenuloplasty, or tongue release surgery by Dr Cody Doss PCP: Not Listed Payer:Rajeev Met w/patient this morning, introduced role. Patient lives alone, currently 18 weeks . Patient came in to the ED w/her mom and recommended by Dr Doss for increased pain and swelling s/p tongue release surgery 12.12.20. Patient admitted observation to hospitalist service, w/OBGYN consult and Dr Doss's visit for s/p surgical care. According to Dr Lawton, patient will likely DC later today on po steroids. Patient eager to return home, states her mom is supportive and will transport her home upon DC. Patient denies needs from this MAHOGANY Montiel Discharge Planning/Care Management CM Discharge Assessment Start: 12/13/20 11:07 Freq: Status: Active Protocol: Document 12/13/20 11:07 ROSS (Rec: 12/13/20 11:09 [id number]) Discharge Planning Assessment Assigned Straight Line [employer]ter MAHOGANY Mays DPOA/Assigned Designee Name yeyo Rodriguez Contact Information [phone] Advance Directives? No History Provided By Patient Prior Living Arrangements Apartment/Condo Household Members none Type of transporation used prior to Drives own vehicle admit Independent with ADL's Yes Is patient alert and oriented? Yes Barriers to Discharge No Discharge Plan Home Transportation Arrangement Mom to transport home Referrals Initiated None needed
[2020-12-13] MEDS: FAMOTIDINE 20 MG/50 ML PIGGYBACK 200 MG IV (12:31)
--- NOTE | 2020-12-13 12:48 | P.DS_ITS ---
History of Present Illness History of Present Illness Date Patient Seen: 12/13/20 Time Patient Seen: 12:48 Chief complaint: brought by Dr Doss Narrative: Per Dr. Davidson, The patient is a 30-year-old 1 para 0 who is 18 weeks gestation who underwent a tongue release surgery earlier today. Patient states the surgery was uneventful. She went home and several hours later developed significant pain. She took Tylenol and lidocaine but developed increasing swelling of her tongue as well as additional pain. She was seen by Dr. Doss, he removed the sutures thinking the patient may have had a hematoma. However there was no evidence of hematoma. As the patient had significant swelling she had difficulty speaking, she was drooling, and there was concern about airway compromise. Patient did undergo CT scanning which revealed:Nonspecific sublingual and submandibular edema and stranding left greater than right. Findings are slightly more prominent to the left of midline. No focal abscess or fluid collection noted. There is only minimal bilateral adenopathy. Findings are nonspecific. Submandibular glands are homogeneous and symmetric in size. Bilateral parotid glands are also much is symmetric in size. No salivary ductal stones demonstrated. Epiglottis, tonsils and adenoids are unremarkable. Nonspecific 1.4 cm left thyroid nodule suggest follow-up ultrasound. Patient denies any shortness of breath, wheezing, or difficulty swallowing. She was given Decadron, racemic epinephrine in the emergency department with some improvement of her symptoms. Swelling appear to improved. Her speech improved. However given her significant edema the patient is admitted to the hospital overnight for observation. She reports her pain is currently well controlled. She continues to have excessive saliva which she is expelling. She does have a history of allergies to codeine and gluten. Discharge Providers Provider Date of admission: 12/13/20 00:38 Discharge Date: 12/13/20 Discharge provider: Arturo Lawton DO Summary Hospital Course Discharge Diagnosis: 1. angioedema, acute, present on admission, improved. 2. Eighteen weeks gestation 3. S/p recent tongue release surgery Hospital Course: This is a 30-year-old female, currently 18 weeks who presented with tongue swelling after recent tongue release. She was started on steroid therapy with rapid improvement of her tongue swelling. She was able to eat and tolerated diet at the time of discharge. It is unclear the source of h er angioedema at this time, possibilities include the lidocaine spray which was used during her recent procedure or possibly NSAID induced from the baby aspirin which she is taking due to elevated blood pressures during her however this is felt to be less likely. She was seen by OBGYN for a heart check which revealed no problems with her current . She was discharged to [facility] a short steroid taper and to follow-up with her facial surgeon, Dr. Stephenson. Exam Vital Signs (past 8 hours): - 12/13/20 05:39 12/13/20 06:30 12/13/20 07:30 Temperature 97.8 F 97.0 F L 97.5 F L Pulse Rate 102 H 88 95 H Respiratory Rate 23 18 24 Blood Pressure 130/58 L 138/74 117/65 Pulse Oximetry 95 94 94 Oxygen Delivery Method Room Air Oxygen Flow Rate 0 Narrative Exam Narrative: Gen: Pleasant female lying in bed with difficulty in speaking, her tongue is enlarged but swelling much improved HEENT: Normocephalic atraumatic, extraocular muscles are intact, oropharynx reveals an enlarged tongue though improving, able to visualize posterior pharynx without eryhtema. Neck: Supple, mildly tender in the left anterior cervical area, no palpable masses noted Lungs: Clear to auscultation bilaterally. Cardiac exam: Regular rate and rhythm normal S1-S2 Abdomen fundus is palpated, no hepatosplenomegaly noted, non-tender Extremities: No edema or joint effusions Neuro exam: Nonfocal, moves all extremities equally Skin exam: No erythema or rashes Psychiatric exam: Patient is awake alert and answers questions appropriately, no delusions, no hallucinations Objective Labs Result Diagrams: 12/13/20 08:45 12/13/20 08:45 Labs: Laboratory Results - last 24 hr 12/12/20 12/12/20 12/12/20 23:14 23:14 23:14 WBC 17.2 H RBC 3.98 L Hgb 12.1 Hct 35.1 L MCV 88.3 MCH 30.4 MCHC 34.4 RDW 13.7 Plt Count 216 Neut % (Auto) 85.8 H Lymph % (Auto) 9.4 L [place] % (Auto) 4.2 Eos % (Auto) 0.3 L Baso % (Auto) 0.3 Neut # (Auto) 79832 H Lymph # (Auto) 1600 [place] # (Auto) 700 Eos # (Auto) 0 Baso # (Auto) 100 Sodium 135 L Potassium 3.8 Chloride 105 Carbon Dioxide 21 L BUN 6 L Creatinine 0.40 L Estimated GFR > 60.0 BUN/Creatinine Ratio 15.0 Glucose 123 H Calcium 9.6 Magnesium Total Bilirubin 0.5 AST 24 ALT 18 Alkaline Phosphatase 48 Total Protein 6.9 Albumin 4.0 Globulin 2.9 Albumin/Globulin Ratio 1.4 Lipase 74 Procalcitonin 0.05 SARS-CoV-2 (PCR) 12/12/20 12/13/20 12/13/20 23:30 08:45 08:45 WBC 13.4 H RBC 3.77 L Hgb 11.4 L Hct 33.3 L MCV 88.6 MCH 30.2 MCHC 34.1 RDW 13.7 Plt Count 218 Neut % (Auto) 92.2 H Lymph % (Auto) 6.3 L [place] % (Auto) 1.4 L Eos % (Auto) 0.0 L Baso % (Auto) 0.1 Neut # (Auto) 28182 H Lymph # (Auto) 900 L [place] # (Auto) 200 Eos # (Auto) 0 Baso # (Auto) 0 Sodium 135 L Potassium 4.0 Chloride 108 H Carbon Dioxide 19 L BUN 5 L Creatinine 0.33 L Estimated GFR > 60.0 BUN/Creatinine Ratio 15.2 Glucose 155 H Calcium 9.3 Magnesium 1.5 L Total Bilirubin AST ALT Alkaline Phosphatase Total Protein Albumin Globulin Albumin/Globulin Ratio Lipase Procalcitonin SARS-CoV-2 (PCR) Negative [facility] Medical History 18 weeks gestation of Gluten intolerance Family History Mother Diabetes mellitus Hypertension Breast cancer Social History household members: none Smoking Status: Never smoker alcohol intake: never Discharge Plan Discharge Plan Patient Disposition: Home Provider Discharge Comment: You were admitted to the hospital with tongue swelling. This improved with steroids. It appears to be a process called angioedema. This can be caused by a number of things. You are being discharged on some oral prednisone. Please contact Dr. Stephenson's office if swelling returns or you can try benadryl or return to the ER. Discharge orders & Medications Prescriptions: New prednisone 20 mg tablet See Rx Instructions .ROUTE .COMPLEX 4 Days Qty: 6 RF: 0 Continued loratadine [Claritin] 10 mg Tablet 10 mg PO DAILY RF: 0 aspirin 81 mg Tablet,Chewable 162 mg PO DAILY RF: 0 vit-iron fum-folic ac 60-0.8 mg Tablet 1 tab PO QPM RF: 0 sertraline 50 mg Tablet 75 mg PO QPM RF: 0 omega-3 fatty acids Capsule 1,500 mg PO DAILY RF: 0 folic acid-vitamin B6-vit B12 2.3-24.5-2 mg Tablet 1 tab PO QPM RF: 0 Medication counseling provided by Pharmacist: Yes Pharmacist Comment: Reviewed continuing home meds with patient as well as new oral steroid. Pt notes she has taken an oral steroid in the past, and does not have any concerns related to the pharmacotherapy. Common side effects and counseling points reviewed. Diet/Activity/Treatments Diet: Diet as Tolerated Diet comment: As tolerated Visit Report/Discharge Packet Instructions: DI for Angioedema, Prednisone Discharge Data Attending Provider: Sindy Davidson
--- NOTE | 2020-12-13 13:59 | PC.NURSE ---
pt discharged at this time following full review of post hospital plan of care and rx review- all questions answered to pts satisfaction
--- NOTE | 2020-12-20 09:22 | PC.NURSE ---
Late Entry; Dextrose infusion initiated 12/13 at 02:52, stopped per discharge order at 12:53. Pepcid infusion initiated at 12:31 complete at 12:47.
== END 2020-12-13 14:00 | disposition home or self-care (01) ==
LOC: ED 12-13 00:38 → AC 12-13 00:39 → ICU 12-13 01:04
PROVIDERS: Internal Medicine; Admitting Provider Internal Medicine; Emergency Provider Emergency Medicine; Referring Provider Dentist Oral and Maxillofacial Surgery; Visit Provider Internal Medicine
DX: T78.3XXA Angioneurotic edema, initial encounter (principal); Z33.1 Pregnant state, incidental; Z98.890 Other specified postprocedural states; Z3A.18 18 weeks gestation of pregnancy; Z20.822 Contact with and (suspected) exposure to COVID-19
CPT/HCPCS: 36415; 70491; 80048; 80053; 83690; 83735; 84145; 85025; 87635; 94640; 96361; 96365; 96366; 96367; 96368; 96372; 96375; 96376; 99284; C9803; G0378; J0171; J1100; J2405; Q9967